=== PATIENT | male | born 1950 | race Caucasian/White ===

== ENCOUNTER 2022-06-24 11:39 | Outpatient (CLI) | payer MEDICARE, BC, SELFPAY | END 2022-06-24 11:40 | disposition home or self-care (01) | PROVIDERS: PCP Family Medicine; Visit Provider Orthopaedic Surgery | DX: Z13.0 Encounter for screening for diseases of the blood and blood-forming organs and certain disorders involving the immune mechanism (principal) | CPT/HCPCS: 36415; 86850; 86900; 86901 ==

== ENCOUNTER 2022-06-25 10:53 | Day surgery (SDC) | payer MEDICARE, BC, SELFPAY ==
[2022-06-25] VITALS (19 sets, daily range): BP systolic 95–135; BP diastolic 60–90; PULSE 45–80; RESP 12–20; TEMP 35.9–36.6; O2SAT 93–98; BMI 26.1
[2022-06-25] MEDS: ACETAMINOPHEN 500 MG TABLET 1000 MG PO ×2 (11:20→20:00)
[2022-06-25] MEDS: OXYCODONE (CR) 10 MG TAB.ER.12H PO (11:20)
[2022-06-25] MEDS: CELECOXIB 200 MG CAPSULE PO ×2 (11:20→21:05)
--- NOTE | 2022-06-25 11:56 | CRLHL7_ITS ---
For Patients: As a result of the Cures Act, medical imaging exams and procedure reports are released immediately into your electronic medical record. You may view this report before your referring provider. If you have questions, please contact your health care provider. Indication: Hip replacement surgery Technique: AP hip fluoroscopic images. Fluoroscopy time 78 seconds. Findings/Impression: Hardware from a left total hip arthroplasty is in satisfactory position. Dictated by Deven Landin MD @ 06/25/2022 2:58:54 PM (Electronically Signed)
[2022-06-25] MEDS: LACTATED RINGERS 1000 ML 1,000 ML 100 ML IV ×2 (12:00→12:55)
[2022-06-25] MEDS: SODIUM CHLORIDE 0.9 % (FLUSH) 10 ML SYRINGE IVF (12:00)
[2022-06-25] MEDS: fentaNYL 100 MCG/2 ML inj IVP (12:10)
[2022-06-25] MEDS: MIDAZOLAM HCL 1 MG/ML inj IVP (12:10)
--- NOTE | 2022-06-25 12:17 | P.NB_ITS ---
Nerve Block Nerve Block Time Seen by Provider: 12:18 Date Seen: 06/25/22 Type of block requested by surgeon for post-operative analgesia: SILVIA/LFCN Side: left Time out performed: Yes Verification of patient name: Yes Verification of date of : Yes Site marking: site marked Name of person performing procedure: Dennis Continuous monitoring Was continuous monitoring of O2 sat, B/P, cardiac technologist, recorded every 15 minutes?: Yes Procedure Checklist: sterile prep, needles and gloves Ultrasound guided. Images saved: Yes Medications given in 5ml increments after negative aspiration: Ropivicaine %: 0.5 mL: 30 Needle gauge: 20 Decadron (mg): 10 Precedex (mcg): 25 Patient tolerated procedure well: Yes Additional comments: Needle noted adjacent to nerve Block Charges Block Charge (with Pro Fee): Other Periph Nerve Block Use of Ultrasound Machine for Block: Yes- US Guidance/pain block
[2022-06-25] MEDS: CEFAZOLIN 2 GM INJ IVP (12:35)
--- NOTE | 2022-06-25 12:44 | SUR.PREOP ---
TIME?OUT:?1207 PT/RN/MDA?VERIFICATION?OF?SURGICAL?SITE,?PROCEDURE,?AND?CONSENT OBTAINED?PRIOR?TO?INVASIVE?PROCEDURE.CORRECT SITE IDENTIFIED SITE MARKED BLOCK COMPLETED BY DR KOREY SHAIKH MDA
[2022-06-25] MEDS: TRANEXAMIC ACID 100 MG/ML INJ 1000 MG IV (12:45)
--- NOTE | 2022-06-25 14:13 | CRLHL7_ITS ---
For Patients: As a result of the Cures Act, medical imaging exams and procedure reports are released immediately into your electronic medical record. You may view this report before your referring provider. If you have questions, please contact your health care provider. Indication: POST OP KELSEY Technique: AP hip center pelvis and lateral view left hip Findings/Impression: Hardware from a left total hip arthroplasty is in satisfactory position. Bone alignment is normal. No sign of acute fracture. Postop changes are within normal limits. Dictated by Deven Landin MD @ 06/25/2022 3:29:14 PM (Electronically Signed)
--- NOTE | 2022-06-25 14:15 | P.ORPRC_ITS ---
Procedure Note Date of procedure: 06/25/22 Procedure: SURGEON: Deuce Adkins MD SENIOR MANUFACTURING SUPERVISOR: Natalia Morelos PA-C, TITA Jacobson PREOPERATIVE DIAGNOSIS: Left hip osteoarthritis POSTOPERATIVE DIAGNOSIS: Left hip osteoarthritis NAME OF OPERATION: Left total hip arthroplasty IMPLANTS: 1. [employer] [place] # 54 sector ingrowth cup 2. 36 x 54 +4 neutral polyethylene 3. Actis # 7 standard collared ingrowth stem 4. 36 + 1.5 ceramic femoral head ANESTHESIA: General ESTIMATED BLOOD LOSS: 200 cc COMPLICATIONS: None SPECIMENS: None DRAINS: None PREOPERATIVE ANTIBIOTICS: Ancef 2 grams INDICATIONS: The patient is a 72-year-old with a longstanding history of severe, unrelenting left hip pain secondary to end-stage left hip osteoarthritis. Despite appropriate nonoperative management, including activity modification, use of an assist device, anti-inflammatories, [id number] pain medication, physical therapy and injections, they continue to have pain and disability. Operative intervention was offered. The risks, benefits and expected outcomes were discussed in detail. These included but were not limited to: Infection, bleeding, injury to blood vessel or nerve, venous thromboembolism. All questions were answered to their satisfaction. Use of an kindergarten instructional assistant was necessary throughout the case for patient positioning and safety, soft tissue retraction and closure. PROCEDURE: The patient was placed supine on the Bassett table. General anesthesia was administered. The kindergarten instructional assistant made sure the patient was properly positioned. The left hip was prepped and draped in the usual sterile fashion. The image intensifier was brought in for a perfect AP pelvis and a perfect double tear drop AP view of each hip which were used for intraoperative templating with our fluoroscopic guide. An oblique incision was made 3 cm distal and 3 cm lateral to the anterior superior iliac spine. The kindergarten instructional assistant retracted the soft tissues to protect them. Subcutaneous dissection was taken with electrocautery to the superficial fascia. The fascia was divided in line with the incision. Blunt dissection was carried medially to the tensor fascia kendell and sartorius interval. Deep dissection was carried with electrocautery. The circumflex vessels were cauterized and divided. The capsule was exposed and then divided in a T- fashion, tagged with #1 Ethibond sutures. Retractors were placed in the joint, held by the kindergarten instructional assistant. The corkscrew was placed in the femoral head. The neck cut was made in the subcapital region. We made a second neck cut more distal. The napkin ring of bone was removed. The femoral head was removed intact. Acetabular retractors were placed, held by the kindergarten instructional assistant. The labrum was sharply debrided. The capsule was released. The 43 mm reamer was used to the true medial wall. We then enlarged in 2 mm increments using the image intensifier for our reamer placement. We impacted the cup which had excellent purchase. We placed the hole eliminator and the polyethylene. Attention was then turned to the proximal femur. The limb was placed in 140 degrees of external rotation, maximum extension and adduction. A significant amount of time was spent releasing the capsule to allow us to deliver the femur into the wound and complete the femoral side safely. Retractors were held by the kindergarten instructional assistant throughout the femoral preparation. The box maker and canal finder were used. Broaches were used to a stable size. The calcar reamer was used. Trial components were placed. The hip was reduced and was found to be stable with appropriate soft tissue tension. Length and offset had been nicely restored using the image intensifier and our fluoroscopic guide. Trial components were removed. The stem was impacted. We placed the femoral head. Again, the hip was reduced and was found to be stable with appropriate soft tissue tension. Length and offset had been nicely restored. The kindergarten instructional assistant did a three minute dilute Betadine solution soak. The kindergarten instructional assistant irrigated the wound with 3 liters of normal saline via pulse lavage. The fortunato lee repaired the anterior capsule with a #1 Vicryl and our previously placed Ethibond sutures. The kindergarten instructional assistant closed the fascia over the tensor fascia kendell with a #1 PDO Stratafix, subcutaneous tissues with 2-0 Vicryl, skin with a running 3-0 Stratafix and glue. A dry dressing was applied by the kindergarten instructional assistant. Sponge and needle counts were correct x 2. The patient tolerated the procedure well; there were no apparent complications. They were awakened and extubated in the operating room, sent to the Post-Anesthesia Care Unit in satisfactory condition. PLAN: 1. The patient will be mobilized with physical therapy, weight-bearing as tolerates 2. Xarelto x 30 days will be used for DVT prophylaxis 3. The patient will be discharged once medically appropriate
--- NOTE | 2022-06-25 14:48 | W.ANESCHARGE ---
Anesthesia Charges Start Date/Time Anesthesia Start Date: 06/25/22 Anesthesia Start Time: 12:22 Stop Date/Time Anesthesia Stop Date: 06/25/22 Anesthesia Stop Time: 14:48 Summary Emergency: No Extremes of Age: Over 70-CPT 15535
[2022-06-25] MEDS: fentaNYL 100 MCG/2 ML inj 50 MCG IVP ×2 (14:54→14:59)
--- NOTE | 2022-06-25 15:13 | W.ANESCHARGE ---
Anesthesia Charges Start Date/Time Anesthesia Start Date: 06/25/22 Anesthesia Start Time: 12:22 Stop Date/Time Anesthesia Stop Date: 06/25/22 Anesthesia Stop Time: 14:48 Summary Emergency: No Extremes of Age: Over 71-CPT 13475
--- NOTE | 2022-06-25 16:56 | ONC.NURNOTE ---
To Med surg ccu room 3 via cart post op at 1500. A bit restless at first . repositions self in bed. awaken easily. alert and oriented. states pain mild at a 4. LS clear. Heart sounds reg S1 S2. abd flat no BS. denies nausea. no le edema. dressing dry and intact. sleeping on and off . repositioning himself. teds and compression feet on. goal is to get up into the chair tonight. has polio as a child so rt leg weaker than left. states has had all his life so doesnt seem odd .
[2022-06-25] MEDS: LACTATED RINGERS 1000 ML 1,000 ML 75 ML IV (21:02)
[2022-06-25] MEDS: CEFAZOLIN 1 GM in 0.9 % SODIUM CHLORIDE Mini-bag 100 ML IVPB (21:05)
[2022-06-25] MEDS: SENNOSIDES 1 TAB TABLET 2 TAB PO (21:05)
--- NOTE | 2022-06-25 21:25 | PC.NURSE ---
up to chair. willian well with walker and belt and asst 2.. leg slight numb. no void or discomfort . willian tst applesauce and milk. comfortable getting up with walker , belt and one next time.
--- NOTE | 2022-06-25 22:04 | PM.IMCN1 ---
Date of Consult Patient: Matthew Patient Consult date: 06/25/22 Requesting Physician: Orthopedics Primary Care Provider: Tori Ayon, Consult Narrative Reason for consult: Post op support with tobacco dependence and alcohol abuse Narrative: Lexa Toro is a 72 year old man who presents today for elective left total hip arthroplasty due to end-stage left hip arthrosis. Procedure undertaken successfully without obvious complication. Smokes between 1/2 and 3/4 pack cigarettes daily. He tells me he gets or near if he can smoke. So far he is doing well and not having problems with that. Typically drinks 3 or 4 12-oz beers daily. Denies history of alcohol withdrawal including diaphoresis, tremors, delirium, seizures. Review of Systems Status of ROS: Reports: 6 or more systems reviewed and unremarkable except as noted in History and below Narrative: I reviewed his preoperative assessment. He denies angina, anginal equivalent, syncope, near syncope, nausea, vomiting, palpitations, diaphoresis, dyspnea at rest, paroxysmal nocturnal dyspnea, orthopnea, claudication. States bowel and bladder habits are satisfactory. 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 Uses a cane for ambulation. No other focal motor neurologic deficits. No recent travel, trauma, injury, infection. He designates his , Rosario, as his power of workers compensation defense attorney for health should that be required. He requests full resuscitation efforts in the event of cardiopulmonary demise. [facility] Medical History (Updated 06/25/22 @ 22:12 by Kevin Thomas MD) Alcohol abuse Lumbar spondylosis Osteoarthritis of left hip Polio Scoliosis Tobacco dependence Unsteady gait Surgical History (Updated 06/25/22 @ 22:12 by Kevin Thomas MD) S/P total left hip arthroplasty Social History Smoking Status: Current every day smoker What tobacco products do you use: cigarettes Smoking quit date/years: >15 years ago How often do you have a drink containing alcohol: 4 or more times a week Alcohol type: beer How many standard drinks containing alcohol do you have on a typical day: 3 or 4 How often do you have six or more drinks on one occasion: Weekly AUDIT-C Alcohol total score: 8 Non-prescribed substance use: denies use Caffeine: Yes (coffee and tea 6 cups) Meds Home Medications and Allergies Home Medications Medication Instructions Recorded Confirmed Type No Known Home Medications 05/27/22 06/18/22 History Allergies Allergy/AdvReac Type Severity Reaction Status Date / Time No Known Drug Allergies Allergy Verified 06/18/22 09:54 Exam Narrative: Exam Narrative: Appears comfortable. No acute distress. Alert, oriented to self, place, time, situation. Pleasant, articulate, cooperative, friendly. Mood and affect are congruent. No tremor, asterixis, or ataxia. Already able to transfer from bed to chair. Obviously malformed right lower extremity, chronic, with diffuse muscle wasting. This is his affected extremity status post poliomyelitis as an infant. Vision and hearing are grossly normal. No icterus. Skin is dry and intact. No jaundice. No petechiae. Lungs are clear to auscultation. Heart tones with regular rhythm. Abdomen with active bowel sounds, soft, nontender. Extremities without edema. Const: Vital Signs, click to edit/add: Vital Signs - 24 hr 06/25/22 12:00 06/25/22 12:10 06/25/22 12:15 Temperature 98 F 97.6 F Pulse Rate 64 80 Pulse Rate [Apical ] Respiratory Rate 20 16 14 Blood Pressure 120/88 Blood Pressure [Ri ght Arm] Pulse Oximetry 96 96 96 Oxygen Delivery Me thod Nasal Cannula Oxygen Flow Rate 3 06/25/22 12:20 06/25/22 14:45 06/25/22 14:50 Temperature 97.6 F Pulse Rate 78 68 72 Pulse Rate [Apical ] Respiratory Rate 14 14 16 Blood Pressure 126/78 113/62 109/83 Blood Pressure [Ri ght Arm] Pulse Oximetry 97 95 96 Oxygen Delivery Me thod Nasal Cannula Room Air Room Air Oxygen Flow Rate 3 06/25/22 14:55 06/25/22 15:00 06/25/22 15:05 Temperature 97.5 F L Pulse Rate 64 61 59 L Pulse Rate [Apical ] Respiratory Rate 14 14 12 Blood Pressure 117/90 H 114/69 133/78 Blood Pressure [Ri ght Arm] Pulse Oximetry 95 94 93 Oxygen Delivery Me thod Room Air Room Air Room Air Oxygen Flow Rate 06/25/22 15:10 06/25/22 15:15 06/25/22 15:30 Temperature 97.4 F L 96.6 F L Pulse Rate 58 L 54 L Pulse Rate [Apical ] 63 Respiratory Rate 12 12 14 Blood Pressure 114/68 115/63 Blood Pressure [Ri ght Arm] 135/82 Pulse Oximetry 93 93 95 Oxygen Delivery Me thod Room Air Room Air Room Air Oxygen Flow Rate 3 06/25/22 15:45 06/25/22 16:15 06/25/22 16:30 Temperature Pulse Rate Pulse Rate [Apical ] 57 L 60 49 L Respiratory Rate 14 14 14 Blood Pressure Blood Pressure [Ri ght Arm] 103/83 95/65 117/64 Pulse Oximetry 98 97 97 Oxygen Delivery Me thod Room Air Room Air Room Air Oxygen Flow Rate 06/25/22 17:00 06/25/22 17:30 06/25/22 18:30 Temperature Pulse Rate Pulse Rate [Apical ] 45 L 48 L 48 L Respiratory Rate 14 14 14 Blood Pressure Blood Pressure [Ri ght Arm] 105/67 96/60 107/63 Pulse Oximetry 98 96 96 Oxygen Delivery Me thod Room Air Room Air Room Air Oxygen Flow Rate 06/25/22 21:00 Temperature 97 F L Pulse Rate Pulse Rate [Apical ] 57 L Respiratory Rate 14 Blood Pressure Blood Pressure [Ri ght Arm] 113/66 Pulse Oximetry 96 Oxygen Delivery Me thod Room Air Oxygen Flow Rate Assessment and Plan Assessment and plan (1) Osteoarthritis of left hip: Status: Acute (2) S/P total left hip arthroplasty: Problem comment: 06/25/2022 Status: Acute Assessment and Plan: 1. Will follow with Orthopedic surgery while he is in hospital. 2. Agree with the postoperative venous thromboembolism prophylaxis efforts. 3. Agree with perioperative antibiotic use (3) Polio: Problem comment: Acquired as ; affected R leg; s/p multiple surgeries Status: Acute Assessment and Plan: 1. He will work closely with Physical and Occupational therapy while here in hospital. (4) Unsteady gait: Status: Acute (5) Alcohol abuse: Problem comment: Typically drinks 3 or 4 12-ounce beers daily; denies withdrawal Status: Acute Assessment and Plan: 1. Will monitor for possible withdrawals. 2. Consider lorazepam with CIWA driven protocol as well as phenobarbital if he starts to develop signs and symptoms of alcohol withdrawal. (6) Tobacco dependence: Problem comment: 1/2-3/4 PPD 06/25/2022 Status: Acute Assessment and Plan: 1. Will order nicotine inhaler for him as needed while in the hospital. 2. Patient has no intention of quitting smoking any time in the near future. Plan 1. Reviewed my impressions with the patient 2. Answered his questions to satisfaction. 3. He asks us to assist as specified above.
[2022-06-26] MEDS: 0.9 % SODIUM CHLORIDE 500 ML IV (00:01)
[2022-06-26] MEDS: ACETAMINOPHEN 500 MG TABLET 1000 MG PO ×2 (00:01→05:44)
[2022-06-26 00:10] VITALS: BP 110/67; PULSE 70; RESP 16; TEMP 36.3; O2SAT 93
[2022-06-26 01:00] VITALS: BP 110/67; PULSE 76; RESP 16; TEMP 36.3; O2SAT 93
[2022-06-26] MEDS: CEFAZOLIN 1 GM in 0.9 % SODIUM CHLORIDE Mini-bag 100 ML IVPB ×2 (01:44→09:27)
[2022-06-26 01:52] VITALS: BP 195/57; PULSE 54; RESP 16; TEMP 36.5; O2SAT 96
--- NOTE | 2022-06-26 04:47 | PC.NURSE ---
[id number]: patient tolerating regular diet, pain controlled with derrick. Tylenol. incision c/d/i.
[2022-06-26 07:36] LABS: Hematocrit 33.1 % (37.0-53.0); Hemoglobin* 11.6 gm/dL (13.5-17.5); Immature Granulocytes Abs Auto 0.02 K/uL (0.00-0.30); Lymphocytes Percent Auto 8.1 % (20-44); Mean Corpuscular HGB Conc 35 gm/dL (32-36); Mean Corpuscular Hemoglobin 33 pg (26-34); Mean Corpuscular Volume 95 fL (80-100); Monocytes Percent Auto 6.5 % (0.0-11.0); Neutrophils Percent Auto 85.2 % (42.0-72.0); Platelet Count* 165 K/uL (140-440)
[2022-06-26] MEDS: LACTATED RINGERS 1000 ML 1,000 ML 75 ML IV (07:54)
[2022-06-26 07:56] VITALS: BP 114/63; PULSE 55; RESP 16; TEMP 36.7; O2SAT 97
[2022-06-26 07:56] LABS: Slide Review Reflex No
[2022-06-26 08:00] VITALS: BP 114/63; PULSE 51; RESP 16; TEMP 36.3; O2SAT 95
[2022-06-26 08:06] LABS: White Blood Count* 10.67 K/uL (4.50-11.00)
--- NOTE | 2022-06-26 08:18 | PM.ORPN ---
Subjective Subjective Time Seen by Provider: 07:15 Date Seen: 06/26/22 Principal diagnosis: Status post left hip replacement Interval history: Lexa is comfortable this morning. He has not ambulated since his surgery yesterday, however stood up next to his bed. Ortho Exam Narrative Exam Narrative: Alert and oriented x3. Patient is in no acute distress. Converses without labored breathing. Hearing is grossly intact. Examination of the left hip shows the dressing is intact. Ecchymosis is present just medial to the dressing. Thigh is soft and nontender. He is not able to fully extend his hip, nor was he able to do this prior to surgery. Bilateral calves are soft and nontender. Numbness over thigh otherwise CMS intact left lower extremity. Const Vital Signs, click to edit/add: Vital Signs - 24 hr 06/25/22 12:00 06/25/22 12:10 06/25/22 12:15 Temperature 98 F 97.6 F Pulse Rate 64 80 Pulse Rate [Apical] Respiratory Rate 20 16 14 Blood Pressure 120/88 Blood Pressure [Right Arm] Pulse Oximetry 96 96 96 Oxygen Delivery Method Nasal Cannula Oxygen Flow Rate 3 06/25/22 12:20 06/25/22 14:45 06/25/22 14:50 Temperature 97.6 F Pulse Rate 78 68 72 Pulse Rate [Apical] Respiratory Rate 14 14 16 Blood Pressure 126/78 113/62 109/83 Blood Pressure [Right Arm] Pulse Oximetry 97 95 96 Oxygen Delivery Method Nasal Cannula Room Air Room Air Oxygen Flow Rate 3 06/25/22 14:55 06/25/22 15:00 06/25/22 15:05 Temperature 97.5 F L Pulse Rate 64 61 59 L Pulse Rate [Apical] Respiratory Rate 14 14 12 Blood Pressure 117/90 H 114/69 133/78 Blood Pressure [Right Arm] Pulse Oximetry 95 94 93 Oxygen Delivery Method Room Air Room Air Room Air Oxygen Flow Rate 06/25/22 15:10 06/25/22 15:15 06/25/22 15:30 Temperature 97.4 F L 96.6 F L Pulse Rate 58 L 54 L Pulse Rate [Apical] 63 Respiratory Rate 12 12 14 Blood Pressure 114/68 115/63 Blood Pressure [Right Arm] 135/82 Pulse Oximetry 93 93 95 Oxygen Delivery Method Room Air Room Air Room Air Oxygen Flow Rate 3 06/25/22 15:45 06/25/22 16:15 06/25/22 16:30 Temperature Pulse Rate Pulse Rate [Apical] 57 L 60 49 L Respiratory Rate 14 14 14 Blood Pressure Blood Pressure [Right Arm] 103/83 95/65 117/64 Pulse Oximetry 98 97 97 Oxygen Delivery Method Room Air Room Air Room Air Oxygen Flow Rate 06/25/22 17:00 06/25/22 17:30 06/25/22 18:30 Temperature Pulse Rate Pulse Rate [Apical] 45 L 48 L 48 L Respiratory Rate 14 14 14 Blood Pressure Blood Pressure [Right Arm] 105/67 96/60 107/63 Pulse Oximetry 98 96 96 Oxygen Delivery Method Room Air Room Air Room Air Oxygen Flow Rate 06/25/22 21:00 06/26/22 00:10 06/26/22 01:00 Temperature 97 F L 97.3 F L 97.3 F L Pulse Rate 70 Pulse Rate [Apical] 57 L 76 Respiratory Rate 14 16 16 Blood Pressure 110/67 Blood Pressure [Right Arm] 113/66 110/67 Pulse Oximetry 96 93 93 Oxygen Delivery Method Room Air Room Air Room Air Oxygen Flow Rate 06/26/22 01:52 06/26/22 07:56 Temperature 97.7 F 98.0 F Pulse Rate Pulse Rate [Apical] 54 L 55 L Respiratory Rate 16 16 Blood Pressure Blood Pressure [Right Arm] 195/57 H 114/63 Pulse Oximetry 96 97 Oxygen Delivery Method Room Air Room Air Oxygen Flow Rate Documenting provider has reviewed patient's vital signs: yes Assessment and Plan Assessment and plan (1) Osteoarthritis of left hip: Status: Acute (2) S/P total left hip arthroplasty: Problem details: 06/25/2022 Status: Acute Assessment and Plan: Plan for discharge is today to home if they meet discharge criteria. DVT prophylaxis includes Xarelto 10 mg daily for total of 30days, for he is a smoker. He is made aware that Xarelto may be very expensive, Romaine stockings x1 month may remove for 1 hr per day, frequent ambulation Remove dressing 1 week. Observe wound and phone Orthopedics with any questions or concerns Use Ice on operative hip unrestricted. Return to clinic in 1 week with PA for a wound check Return to clinic in [address] Adkins Minimize narcotic use. Wean off and discontinue soon as possible. Activities as tolerated. No strenuous activity. Attend outpt PT He is also made aware that he cannot take narcotic pain medication with alcohol. Smoking sensation would be beneficial to avoid postop complications and for overall health. (3) Polio: Problem details: Acquired as ; affected R leg; s/p multiple surgeries Status: Acute (4) Unsteady gait: Status: Acute (5) Alcohol abuse: Problem details: Typically drinks 3 or 4 12-ounce beers daily; denies withdrawal Status: Acute (6) Tobacco dependence: Problem details: 10/14-12/14 PPD 06/25/2022 Status: Acute
[2022-06-26 09:04] LABS: Potassium* 4.3 mmol/L (3.6-5.1); Sodium* 134 mmol/L (135-149)
[2022-06-26 09:07] LABS: Blood Urea Nitrogen* 12 mg/dL (7-30); Creatinine* 0.7 mg/dL (0.5-1.5); Est. Creatinine Clearance* 61.14; Estimated Glomerular Filt Rate 99 ml/min
[2022-06-26] MEDS: SENNOSIDES 1 TAB TABLET 2 TAB PO (09:28)
[2022-06-26] MEDS: RIVAROXABAN 10 MG TABLET PO (09:28)
[2022-06-26] MEDS: OXYCODONE 5 MG TABLET PO (09:28)
[2022-06-26] MEDS: CELECOXIB 200 MG CAPSULE PO (09:28)
--- NOTE | 2022-06-26 11:17 | PC.NURSE ---
06/25 2300 . pt has not voided post op. pt denies discomfort. pt abd soft.non distended. pt bladder scanned for 99cc urine. vs wnl. up to chair without dizzinesspassed on to oncoming MIN[facility] Kaplan prob fluid bolus.
[2022-06-26 11:56] VITALS: BP 106/66; PULSE 62; RESP 16; TEMP 37.1; O2SAT 96
--- NOTE | 2022-06-26 13:29 | PC.NURSE ---
pt discharged in wheel chair with . discharge instructions and belongings sent with patient. All discharge instructions and medications gone over with patient and , all questions answered before discharge. advised with any complications to follow up with MD, go to the emergency department, or call 911. pt stable and in good spirits on departure.
== END 2022-06-26 13:36 | disposition home or self-care (01) ==
LOC: OR 10:54 → MEDSURG 16:00
PROVIDERS: PCP Family Medicine; Visit Provider Orthopaedic Surgery
PROC: (CPT 27130; principal; 2022-06-25 12:45)
DX: M16.12 Unilateral primary osteoarthritis, left hip (principal); F17.210 Nicotine dependence, cigarettes, uncomplicated; F10.10 Alcohol abuse, uncomplicated; M47.816 Spondylosis without myelopathy or radiculopathy, lumbar region; R26.81 Unsteadiness on feet; Z86.12 Personal history of poliomyelitis
CPT/HCPCS: 27130; 1214; 36415; 51702; 51798; 64450; 73501; 76942; 82565; 84132; 84295; 84520; 85025; 97110; 97116; 97162; 97165; 97530; 97535; 99100; A9270; C1776; J0330; J0690; J1100; J1170; J2250; J2405; J2704; J2710; J2795; J3010; J7120

== ENCOUNTER 2022-08-09 13:00 | Outpatient (RCR) | payer MEDICARE, BC, SELFPAY ==
--- NOTE | 2022-06-19 13:02 | PT.OPEX ---
PT [place] Outpatient Eval PT [facility] Outpatient Eval Start: 06/19/22 11:35 Freq: Status: Active Protocol: Document 06/19/22 12:38 BRAD (Rec: 06/19/22 12:54 BRAD [id number]) E-signed By Kusum Tovar DPT Physical Therapy Outpatient Evaluation Insurance Information Recert Due Date 09/17/22 Insurance Name Medicare B,Blue Cross/Blue Shield Medical Diagnosis L hip OA L KELSEY 06/25/22 Treating Diagnosis L hip pain, impaired L hip ROM , impaired L hip/LE mobility/ strength, impaired gait Referring MD Adkins Subjective Subjective Patient reports L hip pain leading up to L KELSEY surgery scheduled for next week, . He reports increased pain with WB, standing/walking, activity. Limited walking tolerance with worsening L hip pain over the years. Patient also with hx of polio with R LE weakness. States he has been walking with a SPC for the last 3-5 years and has been using 2 canes for about the last year now with his L hip issues. Pain rated 5/10. Date of Last Physician Visit 05/27/22 Date of Surgery (If applicable) 06/25/22 Current Work Status Retired Precautions Treatment Precautions/Contraindications hx polio with R LE weakness Assessment Assessment/Impression Patient is a 72 year old male with L hip pain, impaired L hip ROM, impaired L hip/LE mobility/strength, impaired gait. Patient seen in PT today for pre-op session to provide education/information on upcoming KELSEY surgery, safety information/HO, equipment instruction including use of AD and adaptive equipment, and instruction in KELSEY exercises. Handouts issued for exercises , patient to perform them leading up to surgery. Reviewed PT/OT plan during hospital stay and patient is scheduled for OP PT post op. Patient/spouse report 3 stairs to enter the home, bilateral railings but difficult to reach both so patient has been using one railing and one cane for stair negotiation. Patient lives in mult-level home with bedroom/bathroom/ shower on the upper level, TV/ kitchen on the middle level, and patient reports hanging out in the lower level. Patient with hx of polio with R LE weakness so he performs stair negotiation with step to pattern with L LE as the strong leg - he is hoping to be able to continue with this same pattern after surgery. Patient has a FWW to use after surgery but again is hoping to continue with bilateral canes as this is what he is used to leading up to surgery. Patient/spouse expressed understanding of information provided. He is scheduled to return to PT post op. Patient would benefit from skilled PT for pain/sx management, improved hip ROM, improved hip /LE mobility/strength, improved gait, balance/ proprioception training, and establishment of HEP. Plan of Care Rehabilitation Potential Good Physical Therapy Goals 1. Patient will be educated in KELSEY pre/post-op safety, mobility, and exercises with HOs provided within one visit with patient returning to PT for post op treatment after L KELSEY surgery on 06/25/22. PT goals will be updated to KELSEY rehab goals when patient returns post op. Coordination/Communication With Referral Source Treatment Plan/Direct Interventions Gait Training,Manual Therapy, Therapeutic Exercises Frequency/Duration 1-2x/week Patient Will Be Discharged From Therapy Completion of LTG(s),Skills Plateau,Independent w/HEP, Independently Progressing Evaluation Billing Untimed Code Treatment Minutes 34 Complexity Moderate Certification Information Initial Certification Date 06/19/22 Ending Certification Date 09/17/22 Provider Signature Shows Agreement With POC & Medical Necessity Physician Comment/Change Comment or Changes Physician NPI Number #
--- NOTE | 2022-07-05 12:54 | PT.OPDNX ---
[facility] Daily Note [facility] Daily Note Start: 06/19/22 11:35 Freq: Status: Active Protocol: Document 07/05/22 07:53 ENM (Rec: 07/05/22 12:00 ENM [id number]) E-signed By Suzanna Douglass DPT PT [facility] Daily Progress Note Visit Information Note Type Re-Evaluation Visit Number 2 Insurance Authorized Visits - Physician Authorized Visits - Insurance Information Recert Due Date 09/17/22 Insurance Name Medicare B,[employer] Medical Diagnosis L hip OA L KELSEY 06/25/22 Treating Diagnosis L hip pain, decreased hip ROM, decreased hip strength, impaired gait, impaired transfers, impaired balance Referring MD Adkins Subjective Subjective Patient underwent L KELSEY on performed by . He saw the PA yesterday and was told that everything is going well. He states that he mainly only has pains at night . He is having a hard time finding a comfortable position at night. He is sleeping on the couch so that he doesn't have to do the stairs to go to his bedroom. He states that he has a hard time laying with the leg fully flat. He has been performing the stairs with the L leg leading as his right leg is weaker at baseline due to hx of polio. He does use a cane at baseline on the L side. Walking has been getting better everyday. His main complaint is of not being able to straighten the knee or lift the leg. He states that he has not been performing the exercises as he feels that it is inconvenient . PMHx: hx of polio with R LE weakness. Pain Comments mild-mod pain Precautions Treatment Precautions/Contraindications hx polio with R LE weakness Home Exercise Home Exercise Comments KELSEY exercises - HO provided Objective Other/Pertinent Objective ROM: Knee ROM L knee ext PROM limited by ~5 deg, unable to get fully straight in supine actively R 0-0-135 hip ROM R hip full passive hip flexion , unable to actively flex hip against gravity L hip AROM flexion 60 In supine L hip 20 degs from neutral hip ext. Able to tolerate passive hip flexion to 90 deg strength: L quad set R quad set fair 5x STS: 28.30s with use of arms, RLE knee valgus while performing, LLE ER compensation to avoid full knee ext gait/balance: Patient ambulating with RLE global weakness with noted foot drop. Patient ambulating with antalgic gait pattern and decreased knee extension of the LLE. Using 2WW with step to gait pattern. Noted patient pushing walker too far in front with ambulation palpation/joint mobility: tender and tight mid and lateral quad swelling/observation: able to slowly lift RLE into the bed using torso leverage to perform Patient Instructed in Risks/Benefits Yes Therapeutic Exercise Therapeutic Exercise Minutes (minutes) 21 Therapeutic Exercise: To Restore -SAQ 10x5s holds Functional Status -supine heel slide -HS set 10x5s holds -seated quad set -seated calf stretch with strap -issued tennis balls for walker -Educated patient on importance of performing exercises and allowing the hip and knee to ext ass much as tolerated to decreased anterior hip tightness Manual Therapy Techniques Manual Therapy Minutes (minutes) 3 Manual Therapy Techniques -STM to mid and lateral quad Treatment Minutes Untimed Code Treatment Minutes 27 Timed Code Treatment Minutes 24 Total Treatment Time 51 Billing Units Therapeutic Exercise Units 2 Re-Evaluation Units 1 Assessment/Impression Assessment/Impression Patient returns to PT for evaluation after L KELSEY DOS . He reports minimal pains overall at the hip during the day, mainly painful and uncomfortable at night. Patient has been getting around with use of 2WW, he uses a cane at baseline. Walking is improving everyday and is the patients main form of physical activity at this time. Patient has a history of right sided weakness due to polio and has been navigating stairs with the L leg leading. The most difficult activities at this time are laying down, walking and being able to lift the L leg. Upon assessment patient presents with decreased hip ROM, impaired gait, impaired transfers, decreased quad strength and swelling. Patient having difficulties extending the knee and hip in supine, better knee extension in sitting. He displays step to gait pattern at baseline but more limited at this time due to L quad weakness and hip tightness. Impairments consistent with s/p KELSEY. Patient would benefit from skilled PT to address post operative impairments stated above in order to perform all functional and recreational activities without significant difficulty or discomfort. Plan of Care Physical Therapy Goals In 6-8 visits, Patient will: 1. Complete 5 reps of SLR for improved ease of supine<>sit transfer 2. Stand/walk up to 20 minutes with SEC and no report of increased hip pain 3. Will perform x5 STS with improved form and no hip pain for improved ease of transfers 4. A/D flight of 10 steps reciprocally with symmetric WB for improved navigation of household Daily Plan of Care Continue per POC Daily Plan of Care Comments Plan: progress gait pattern progress quad strength progress hip ROM standing exercises nustep
== END 2022-08-14 13:46 | disposition home or self-care (01) ==
PROVIDERS: PCP Family Medicine; Visit Provider Orthopaedic Surgery
DX: M16.12 Unilateral primary osteoarthritis, left hip (principal); Z51.89 Encounter for other specified aftercare
CPT/HCPCS: 97110; 97140; 97162; 97164